=== PATIENT | male | born 1980 | race Caucasian/White ===

== ENCOUNTER 2021-04-12 04:50 | Emergency (ER) | payer OTHER ==
[~2021-04-12] VITALS: Ht 177.8 cm; Wt 98.0 kg
[~2021-04-12 04:50] MED LIST: LISINOPRIL10 MG PO; METFORMIN500 M2 PO
[2021-04-12] MEDS ORDERED: BUSPIRONE5 MG PO (05:20)
[2021-04-12] MEDS ORDERED: GLIMEPIRIDE2 MG PO (05:21)
[2021-04-12] MEDS ORDERED: MEDICAL MARAJUANA (05:22)
[2021-04-12 05:39] LABS: HEMATOCRIT 37.2 % (39.0-50.0); HEMOGLOBIN 12.7 g/dl (14.0-18.0); IMMATURE GRANULOCYTES 0.2 % (0.0-5.0); MEAN CELL VOLUME 94.9 fL CALC (80.0-100.0); MEAN CORPUSCULAR HGB 32.4 pG CALC (26.0-32.0); MEAN CORPUSCULAR HGB CONC 34.1 g/dL CAL (32.0-36.0); NEUT# 5.23 thou/uL (1.82-7.42); RED BLOOD COUNT 3.92 mill/uL (4.70-6.10); RED CELL DISTRI WIDTH 11.8 % (11.5-15.5)
[2021-04-12 05:53] LABS: ALBUMIN 3.9 g/dL (3.2-5.0); ALKALINE PHOSPHATASE 51 u/l (38-126); ANION GAP 12 (6-22 (CALC)); BILIRUBIN, TOTAL 0.5 mg/dL (0.0-1.4); BUN 18 mg/dL (9-20); BUN/CREATININE RATIO 23 (12-20 (CALC)); CARBON DIOXIDE 24 mmol/l (22-30); CHLORIDE 104 mmol/l (95-108); CREATININE 0.8 mg/dL (0.7-1.3); GFR > 60 ML/MIN (>=60 (CALC)); GFR FOR AFR.AMER. > 60 ML/MIN (>=60 (CALC)); POTASSIUM 4.2 mmol/l (3.5-5.1); SGOT/AST 23 u/l (17-59); SODIUM 136 mmol/l (137-146); TOTAL PROTEIN 7.1 g/dL (6.3-8.2)
[2021-04-12 09:52] VITALS: BP 158/93
== END 2021-04-12 10:00 | disposition home or self-care (01) ==
LOC: ED 04:50
PROVIDERS: Emergency Medicine
DX: F41.0 Panic disorder [episodic paroxysmal anxiety] (principal); I10 Essential (primary) hypertension; E11.9 Type 2 diabetes mellitus without complications; F17.290 Nicotine dependence, other tobacco product, uncomplicated; Z79.84 Long term (current) use of oral hypoglycemic drugs
CPT/HCPCS: J2060

== ENCOUNTER 2021-05-30 12:00 | Observation (INO) | payer OTHER ==
[~2021-05-30] VITALS: Ht 177.8 cm; Wt 102.2 kg
[~2021-05-30 12:00] MED LIST changes: +BUSPIRONE5 MG PO; +GLIMEPIRIDE2 MG PO; +MEDICAL MARAJUANA
--- NOTE | 2021-05-30 12:00 | NUR ---
PT TO ROOM VIA WHEELCHAIR.
[2021-05-30 12:29] LABS: HEMATOCRIT 43.1 % (39.0-50.0); IMMATURE GRANULOCYTES 0.2 % (0.0-5.0); MEAN CELL VOLUME 93.7 fL CALC (80.0-100.0); MEAN CORPUSCULAR HGB CONC 34.1 g/dL CAL (32.0-36.0); NEUT# 4.09 thou/uL (1.82-7.42); RED BLOOD COUNT 4.6 mill/uL (4.70-6.10); RED CELL DISTRI WIDTH 11.4 % (11.5-15.5)
[2021-05-30 12:31] LABS: HEMOGLOBIN 14.7 g/dl (14.0-18.0)
[2021-05-30 12:41] LABS: ALBUMIN 4.6 g/dL (3.2-5.0); ALKALINE PHOSPHATASE 64 u/l (38-126); AMYLASE 51 u/l (30-110); BILIRUBIN, TOTAL 0.6 mg/dL (0.0-1.4); BUN 15 mg/dL (9-20); BUN/CREATININE RATIO 14 (12-20 (CALC)); CHLORIDE 101 mmol/l (95-108); CREATININE 1.1 mg/dL (0.7-1.3); ETHYL ALCOHOL 0 mg/dl (0-30); GFR > 60 ML/MIN (>=60 (CALC)); GFR FOR AFR.AMER. > 60 ML/MIN (>=60 (CALC)); LIPASE 74 u/l (23-300); MAGNESIUM 1.9 mg/dL (1.6-2.3); POTASSIUM 4.1 mmol/l (3.5-5.1); SGOT/AST 33 u/l (17-59); SODIUM 136 mmol/l (137-146); TOTAL PROTEIN 8.5 g/dL (6.3-8.2)
[2021-05-30 12:44] LABS: ANION GAP 21 (6-22 (CALC)); CARBON DIOXIDE 18 mmol/l (22-30)
[2021-05-30 12:47] LABS: D-DIMER 0.23 mg/L (0.19-0.60)
[2021-05-30 12:51] LABS: ACT PARTIAL THROMBO TIME 22.5 SECONDS (20.0-32.5); PROTHROMBIN TIME 10.8 SECONDS (9.0-12.5)
--- NOTE | 2021-05-30 13:30 | NUR ---
PT ATTEMPTING TO GIVE UA DUE TO PENDING UA
[2021-05-30 14:00] LABS: URINE BILIRUBIN - DIPSTICK NEGATIVE (NEGATIVE); URINE BLOOD DIPSTICK NEGATIVE (NEGATIVE); URINE COLOR YELLOW; URINE GLUCOSE - DIPSTICK >=1000 mg/dL (NEGATIVE); URINE KETONE TRACE mg/dL (NEGATIVE); URINE LEUK ESTERASE NEGATIVE (NEGATIVE); URINE PH 5.5 (4.5-8.0); URINE PROTEIN - DIPSTICK TRACE mg/dL (NEG-TRACE); URINE SPECIFIC GRAVITY >=1.030; URINE UROBILINOGEN - DIPSTICK 0.2 E.U./dL (0.2)
[2021-05-30 14:03] LABS: URINE NITRITE - DIPSTICK NEGATIVE (Negative)
--- NOTE | 2021-05-30 14:27 | NUR ---
PT RESTING IN BED, VSS
--- NOTE | 2021-05-30 15:27 | NUR ---
PT AWAITING ROOM ASSIGNMENT, RESTING
--- NOTE | 2021-05-30 15:32 | NUR ---
ATTEMPTED REPORT TO MS RN, NO ANSWER BY RN
--- NOTE | 2021-05-30 15:40 | NUR ---
GAVE REPORT TO WOODY GUZMAN, AWAITING PT TO BE IN SYSTEM BEFORE TRANSFER. TELEMETRY APPLIE
--- NOTE | 2021-05-30 16:31 | NUR ---
PT ARRIVED VIA WC WITH STAFF. IV SITE IS FREE FROM REDNES OR EDEMA.
[2021-05-30 16:40] VITALS: BP 138/70
--- NOTE | 2021-05-30 17:20 | NUR ---
ASSESSMENT IS COMPLETED: IV SITE IS FREE FROM REDNESS OR EDEMA. HR IS REG,PULSES ARE STRONG X4, ABD IS SOFT WITH ACTIVE BS. BREATH SOUNDS ARE CLEAR,BILATERALLY, TELE MONITOR IN PLACE. CONTINUE TO OBSERVE AND MONITOR.
--- NOTE | 2021-05-30 18:35 | NUR ---
PT WANTS TO GO HOME DUE TO WORK IN THE AM. HE IS THE ONLY ON2 WITH THEKEY TO THE PUMPS. INFORMED DR ECHOLS. PT IS SIGNING OUT AMA.
--- NOTE | 2021-05-30 18:43 | NUR ---
PT SIGNED THE FORM FOR AMA , IV SITE AND TELE MONITOR TAKEN OFF. PT AMBULATED OFF THE UNIT. CONTINUE TO OBSERVE AND MONITOR.
--- NOTE | 2021-05-30 18:49 | NUR ---
Discharge instructions given. Patient verbalizes understanding of same. Discharged in stable condition via Ambulatory to Home with family. All belongings sent with pt.
== END 2021-05-30 18:40 | disposition left against medical advice (07) ==
LOC: ED 12:00 → MS2 14:45
PROVIDERS: ADMIT Internal Medicine; ATTEND Internal Medicine
DX: R55 Syncope and collapse (principal); E87.2 Acidosis; F41.9 Anxiety disorder, unspecified; I10 Essential (primary) hypertension; E11.9 Type 2 diabetes mellitus without complications; F17.200 Nicotine dependence, unspecified, uncomplicated; Z20.822 Contact with and (suspected) exposure to COVID-19
CPT/HCPCS: G0378; J2060

== ENCOUNTER 2022-07-08 01:33 | Emergency (ER) | payer OTHER ==
[~2022-07-08] VITALS: Ht 177.8 cm; Wt 100.0 kg
[2022-07-08 01:56] VITALS: BP 154/91
[2022-07-08 02:01] VITALS: BP 130/83
[2022-07-08 02:03] LABS: HEMATOCRIT 38.3 % (39.0-50.0); IMMATURE GRANULOCYTES 0.1 % (0.0-5.0); MEAN CELL VOLUME 93.6 fL CALC (80.0-100.0); MEAN CORPUSCULAR HGB 34.2 pG CALC (26.0-32.0); MEAN CORPUSCULAR HGB CONC 36.6 g/dL CAL (32.0-36.0); NEUT# 4.66 thou/uL (1.82-7.42); RED BLOOD COUNT 4.09 mill/uL (4.70-6.10); RED CELL DISTRI WIDTH 11.2 % (11.5-15.5)
[2022-07-08 02:15] LABS: ALBUMIN 4.3 g/dL (3.2-5.0); ALKALINE PHOSPHATASE 51 u/l (38-126); ANION GAP 16 (6-22 (CALC)); BILIRUBIN, TOTAL 0.3 mg/dL (0.0-1.4); BUN 11 mg/dL (9-20); BUN/CREATININE RATIO 15 (12-20 (CALC)); CARBON DIOXIDE 23 mmol/l (22-30); CHLORIDE 102 mmol/l (95-108); CREATININE 0.7 mg/dL (0.7-1.3); GFR FOR AFR.AMER. > 60 ML/MIN (>=60 (CALC)); GFR OTHER RACES > 60 ML/MIN (>=60 (CALC)); SGOT/AST 37 u/l (17-59); SODIUM 137 mmol/l (137-146); TOTAL PROTEIN 7.3 g/dL (6.3-8.2)
[2022-07-08 02:20] LABS: D-DIMER 0.17 mg/L (0.19-0.60)
[2022-07-08 02:28] LABS: ACT PARTIAL THROMBO TIME 23.4 SECONDS (20.0-32.5); MYOGLOBIN 27 ng/mL (0 - 121); PROTHROMBIN TIME 9.9 SECONDS (9.0-12.5)
[2022-07-08 02:31] VITALS: BP 135/81
[2022-07-08 02:46] VITALS: BP 132/82
[2022-07-08 02:46] LABS: TSH, 3RD GENERATION 4.55 uIU/mL (0.47 - 4.68)
[2022-07-08 03:01] VITALS: BP 134/86
[2022-07-08] MEDS ORDERED: AMARYL2 MG PO (03:14)
[2022-07-08] MEDS ORDERED: VISTARIL25 MG PO (03:14)
[2022-07-08 03:16] VITALS: BP 143/82
== END 2022-07-08 03:30 | disposition home or self-care (01) ==
LOC: ED 01:33
PROVIDERS: Family Medicine
DX: F41.0 Panic disorder [episodic paroxysmal anxiety] (principal); R73.9 Hyperglycemia, unspecified; Z87.891 Personal history of nicotine dependence; Z20.822 Contact with and (suspected) exposure to COVID-19

== ENCOUNTER 2023-03-26 21:25 | Emergency (ER) | payer OTHER ==
[~2023-03-26] VITALS: Ht 177.8 cm; Wt 113.0 kg
[~2023-03-26 21:25] MED LIST changes: +ADULT ASPIRIN R81 MG PO; +AMARYL2 MG PO; +ATORVASTATIN CA10 MG PO; +FLUOXETINE10 M2 PO; +MEDDOSEPAK PO; +VISTARIL25 MG PO; +ZESTRIL10 M1 PO
[2023-03-26 21:32] VITALS: BP 115/75
[2023-03-26 21:46] VITALS: BP 130/84
[2023-03-26 22:01] VITALS: BP 100/64
[2023-03-26 23:33] VITALS: BP 246/216
[2023-03-26 23:35] VITALS: BP 141/88
[2023-03-26 23:56] LABS: BASO% 0.2 % (0-3); EOS% 0.1 % (0-8); HEMATOCRIT 40.4 % (39.0-50.0); HEMOGLOBIN 14.2 g/dl (14.0-18.0); IMMATURE GRANULOCYTES 0.3 % (0.0-5.0); LYMPH% 10.7 % (15-41); MEAN CELL VOLUME 94.4 fL CALC (80.0-100.0); MEAN CORPUSCULAR HGB 33.2 pG CALC (26.0-32.0); MEAN CORPUSCULAR HGB CONC 35.1 g/dL CAL (32.0-36.0); MONO% 7.2 % (2-13); NEUT# 13.9 thou/uL (1.82-7.42); NEUT% 81.5 % (42-76); RED BLOOD COUNT 4.28 mill/uL (4.70-6.10); RED CELL DISTRI WIDTH 11.1 % (11.5-15.5)
[2023-03-27] VITALS: BP 120/86
[2023-03-27 00:07] LABS: PROTHROMBIN TIME 10.4 SECONDS (9.0-12.5)
[2023-03-27 00:08] LABS: ALBUMIN 4.7 g/dL (3.2-5.0); ALKALINE PHOSPHATASE 50 u/l (38-126); BUN 12 mg/dL (9-20); BUN/CREATININE RATIO 15 (12-20 (CALC)); CHLORIDE 98 mmol/l (95-108); CREATININE 0.8 mg/dL (0.7-1.3); GFR FOR AFR.AMER. > 60 ML/MIN (>=60 (CALC)); GFR OTHER RACES > 60 ML/MIN (>=60 (CALC)); SGOT/AST 86 u/l (17-59); SODIUM 132 mmol/l (137-146); TOTAL PROTEIN 7.7 g/dL (6.3-8.2)
[2023-03-27 00:11] VITALS: BP 120/86
[2023-03-27 00:16] LABS: ANION GAP 22 (6-22 (CALC)); BILIRUBIN, TOTAL 0.3 mg/dL (0.2-1.3); CARBON DIOXIDE 16 mmol/l (22-30)
== END 2023-03-27 00:39 | disposition short-term general hospital (02) ==
LOC: ED 21:25
PROVIDERS: Emergency Medicine
DX: S06.6X0A Traumatic subarachnoid hemorrhage without loss of consciousness, initial encounter (principal); S80.211A Abrasion, right knee, initial encounter; I10 Essential (primary) hypertension; E11.9 Type 2 diabetes mellitus without complications; F41.0 Panic disorder [episodic paroxysmal anxiety]; F32.A Depression, unspecified; Y04.0XXA Assault by unarmed brawl or fight, initial encounter; Y92.009 Unspecified place in unspecified non-institutional (private) residence as the place of occurrence of the external cause; Z79.84 Long term (current) use of oral hypoglycemic drugs
CPT/HCPCS: J2060

== ENCOUNTER 2024-11-10 00:09 | Emergency (ER) | payer OTHER ==
[~2024-11-10] VITALS: Ht 167.6 cm; Wt 108.8 kg
[~2024-11-10 00:09] MED LIST changes: +AMARYL1 MG PO; +DIAZEPAM5 MG PO; +DOXYCYCLINE100 MG PO; +NARCAN4 MG/0.1 M; +OZEMPIC2 MG SC; +PERCOCET 5/325M1 TAB PO; +PROZAC20 M1 PO; +[UNRECOGNIZED DRUG - OTHER] SC
[2024-11-10 00:14] VITALS: BP 117/79
[2024-11-10 00:30] VITALS: BP 110/86
[2024-11-10 00:40] LABS: BASO% 0.3 % (0-3); HEMATOCRIT 38.9 % (39.0-50.0); IMMATURE GRANULOCYTES 0.2 % (0.0-5.0); LYMPH% 23.4 % (15-41); MEAN CORPUSCULAR HGB 35.3 pG CALC (26.0-32.0); MONO% 7.2 % (2-13); NEUT# 6.43 thou/uL (1.82-7.42); NEUT% 67.9 % (42-76); RED BLOOD COUNT 3.97 mill/uL (4.70-6.10); RED CELL DISTRI WIDTH 11.3 % (11.5-15.5)
[2024-11-10 00:53] LABS: ALBUMIN 4.6 g/dL (3.2-5.0); ALKALINE PHOSPHATASE 51 u/l (38-126); BILIRUBIN, TOTAL 0.7 mg/dL (0.2-1.3); BUN 10 mg/dL (9-20); BUN/CREATININE RATIO 15 (12-20 (CALC)); CARBON DIOXIDE 23 mmol/l (22-30); CPK 95 u/l (55-170); CREATININE 0.7 mg/dL (0.7-1.3); ESTIMATED GFR 117 ML/MIN (>=90 (CALC)); ETHYL ALCOHOL 176 mg/dl (0-30); LIPASE 205 u/l (23-300); POTASSIUM 3.8 mmol/l (3.5-5.1); SODIUM 131 mmol/l (137-146); TOTAL PROTEIN 7.5 g/dL (6.3-8.2)
[2024-11-10 00:57] LABS: ANION GAP 21 (6-22 (CALC)); CHLORIDE 91 mmol/l (95-108); SGOT/AST 143 u/l (17-59)
[2024-11-10] MEDS ORDERED: Levofloxacin 500 mg Premix 100 ML IV ONE (01:05)
[2024-11-10 02:00] VITALS: BP 116/77
[2024-11-10 02:30] VITALS: BP 115/77
[2024-11-10] MEDS ORDERED: Pantoprazole Sodium 40 MG VIAL (Protonix) IV ONE (02:50)
[2024-11-10] MEDS ORDERED: ZOFRAN4 MG/TAB PO (02:54)
[2024-11-10] MEDS ORDERED: PROTONIX40 MG PO (02:54)
[2024-11-10 03:37] VITALS: BP 115/77
== END 2024-11-10 03:37 | disposition home or self-care (01) ==
LOC: ED 00:09
PROVIDERS: Family Medicine
DX: R55 Syncope and collapse (principal); I10 Essential (primary) hypertension; E11.9 Type 2 diabetes mellitus without complications; F41.0 Panic disorder [episodic paroxysmal anxiety]; F32.A Depression, unspecified; Z79.84 Long term (current) use of oral hypoglycemic drugs; Z79.85 Long-term (current) use of injectable non-insulin antidiabetic drugs
CPT/HCPCS: J1956; J2470